=== PATIENT | female | born 1995 | race Caucasian/White ===

== ENCOUNTER 2019-04-15 09:45 | Emergency (ER) | payer BC ==
[~2019-04-15] VITALS: Ht 180.3 cm; Wt 77.6 kg
[2019-04-15 09:54] VITALS: BP_SYST 145
--- NOTE | 2019-04-15 09:54 | NUR ---
Pt ambulated to bed 4 in stable condition
--- NOTE | 2019-04-15 09:58 | NUR ---
Patient is awake, alert, and oriented x4. Patient states she had felt like her heart was coming out of her chest accompanied with left sided facial numbness and tightness 20 minutes ago. Patient denies nausea, vomiting, diarrhea, and pain.
--- NOTE | 2019-04-15 10:01 | NUR ---
ER Dr. Smith at bedside examining patient.
[2019-04-15] MEDS ORDERED: LORazepam 1 MG TABLET PO ONE (10:15)
--- NOTE | 2019-04-15 11:20 | NUR ---
Dr. Smith in to talk to patient.
--- NOTE | 2019-04-15 11:34 | NUR ---
Patient given written and verbal discharge instructions and verbalizes understanding. ER MD discussed with patient the results and treatment provided. Patient in stable condition. ID arm band removed. Patient educated on pain management and to follow up with PMD. Pain Scale 0/10. Opportunity for questions provided and answered. Medication side effect fact sheet provided.
[2019-04-15 11:35] VITALS: BP_SYST 128
== END 2019-04-15 11:34 | disposition home or self-care (01) ==
LOC: SED 09:45
DX: G51.0 Bell's palsy (principal)
CPT/HCPCS: 99282